=== PATIENT | female | born 1940 | race Caucasian/White ===

== ENCOUNTER 2022-07-12 08:40 | Emergency (ER) | payer OTHER, MEDICARE ==
[2022-07-12] MEDS ORDERED: Acetaminophen 500 MG TAB ONE (09:08)
== END 2022-07-12 09:26 | disposition home or self-care (01) ==
LOC: MADERS 08:40
DX: S42.212A Unspecified displaced fracture of surgical neck of left humerus, initial encounter for closed fracture (principal); S90.222A Contusion of left lesser toe(s) with damage to nail, initial encounter; K21.9 Gastro-esophageal reflux disease without esophagitis; W01.0XXA Fall on same level from slipping, tripping and stumbling without subsequent striking against object, initial encounter; Z79.899 Other long term (current) drug therapy
CPT/HCPCS: 23605